=== PATIENT | male | born 1960 | race Caucasian/White ===

== ENCOUNTER 2016-04-23 11:55 | Day surgery (SDC) | payer OTHER ==
[2016-04-23] MEDS ORDERED: LR 1,000 ML ONE (12:28)
[2016-04-23] MEDS ORDERED: KEFZOL 2 GM/D5W 50 ML ONE (12:28)
[2016-04-23] MEDS ORDERED: PEPCID ONE ×2 (13:44→13:45)
[2016-04-23] MEDS: REGLAN ONE ×2 (13:49→13:51)
[2016-04-23] MEDS ORDERED: MARCAINE 0.25% PF/EPI 1:200,000 ONE (15:06)
[2016-04-23] MEDS ORDERED: XYLOCAINE 1% ONE (15:07)
[2016-04-23] MEDS ORDERED: DIPRIVAN 1% ONE (15:57)
[2016-04-23] MEDS ORDERED: FENTANYL ONE (15:57)
[2016-04-23] MEDS ORDERED: VERSED ONE (15:57)
[2016-04-23] MEDS ORDERED: NORCO-7.5 PO PRN (16:03)
[2016-04-23] MEDS ORDERED: ZOFRAN IV PRN (16:03)
[2016-04-23] MEDS ORDERED: XYLOCAINE-MPF 2% ONE (16:13)
[2016-04-23 16:24] VITALS: BP 128/74
--- NOTE | 2016-04-23 16:48 | OPERATIVE NOTE ---
PROCEDURE DATE: 04/23/2016 PREOPERATIVE DIAGNOSIS: Back cyst. POSTOPERATIVE DIAGNOSIS: Back cyst. PROCEDURE PERFORMED: Excision of 3 cm back cyst down to and including the level of the muscle fascia. ESTIMATED BLOOD LOSS: 10 mL. SPECIMENS: Back cyst. COMPLICATIONS: None. ANESTHESIA: MAC. OPERATIVE INDICATION: This is a 55-year-old male, who has had a chronic back cyst. It has been incised and drained prior. Recently became inflamed, infected, drained spontaneously. Now presents for definitive excision. He is currently on p.o. antibiotics. OPERATIVE FINDINGS: There was an at least 3 cm mass that extended down to and due to the inflammatory state was including muscle fascia of the paraspinal muscles. There were several draining puncta on the skin overlying, these were excised. OPERATIVE NOTE: Risks, benefits and alternatives discussed with the patient and he consented to the procedure. He was seen in the preoperative area and surgery to be performed was confirmed. Surgical site was marked. He has taken to the operating room. IV monitored anesthesia was administered. He was placed in right lateral decubitus position, all bony prominences were padded, and placed in neutral position. His back was prepped with chlorhexidine, draped in usual fashion. After time-out was performed a block with Marcaine and lidocaine solution with epinephrine was performed around the lesion. Elliptical incision was made around the area of the puncta that was quite inflamed with thinning of the skin, excised down. We encountered the mass that undermined more laterally with a separate punctum here. We excised this in its entirety back to healthy tissue, obtained hemostasis, irrigated the wound copiously. There was no real purulence but there was lot of sebum in the cyst. As such, using 1 interrupted 3-0 Vicryl suture we obliterated some space and closed the skin loosely with interrupted vertical mattress sutures. We then applied a tight gauze pressure type dressing to facilitate drainage. Encouraged him to continuous his course of oral antibiotics. He will see me back in the office for wound check in the next 1-2 weeks. I spoke with the family.
== END 2016-04-23 16:30 | disposition home or self-care (01) ==
LOC: OR 11:55
PROVIDERS: ATTEND Surgery
DX: L72.0 Epidermal cyst (principal); Z79.899 Other long term (current) drug therapy; Z87.891 Personal history of nicotine dependence; Z82.49 Family history of ischemic heart disease and other diseases of the circulatory system; Z80.3 Family history of malignant neoplasm of breast; Z81.1 Family history of alcohol abuse and dependence
CPT/HCPCS: 88304; J0690; J2250; J3010; J7120